=== PATIENT | female | born 1960 | race Caucasian/White ===

== ENCOUNTER 2023-07-07 15:38 | Inpatient (IN) | payer OTHER ==
[2023-07-07 16:43] VITALS: BMI 19.0
[2023-07-07] MEDS ORDERED: DICYCLOMINE HCL 10 MG CAPSULE PO PRN (17:22)
[2023-07-07] MEDS ORDERED: guaiFENesin 600 MG TABLET.ER (FP) PO PRN (17:22)
[2023-07-07] MEDS ORDERED: MAG HYDROX/AL HYDROX/SIMETH 30 ML UNIT-DOSE CUP PO PRN (17:22)
[2023-07-07] MEDS ORDERED: NALOXONE HCL 0.4 MG/ML VIAL IM PRN (17:22)
[2023-07-07] MEDS ORDERED: BENZOCAINE/MENTHOL (CHLORASEPTIC ) LOZENGE MM PRN (17:22)
[2023-07-07] MEDS ORDERED: BISMUTH SUBSALICYLATE 524 MG/30 ML PO PRN (17:22)
[2023-07-07] MEDS ORDERED: BENZONATATE 200 MG CAPSULE PO PRN (17:22)
[2023-07-07] MEDS ORDERED: IBUPROFEN 400 MG TABLET (FP) PO PRN (17:22)
[2023-07-07] MEDS ORDERED: NICOTINE POLACRILEX 2 MG GUM BUC PRN (17:22)
[2023-07-07] MEDS ORDERED: POLYETHYLENE GLYCOL (HEALTHYLAX) 3350 17 GM PACKET PO PRN (17:22)
[2023-07-07] MEDS ORDERED: ACETAMINOPHEN 325 MG TABLET (FP) PO PRN (17:22)
[2023-07-07] MEDS ORDERED: IBUPROFEN 600 MG TABLET (FP) PO PRN (17:22)
[2023-07-07] MEDS ORDERED: ONDANSETRON *ODT* 4 MG TABLET SL PRN (17:22)
[2023-07-07] MEDS ORDERED: NALOXONE HCL (KLOXXADO) 8 MG SPRAY NS PRN (17:22)
[2023-07-07] MEDS ORDERED: MAGNESIUM HYDROX 2400MG/30ML ORAL SUSPENSION 30 ML CUP PO PRN (17:22)
[2023-07-07] MEDS ORDERED: LOPERAMIDE HCL 2 MG CAPSULE PO PRN (17:22)
[2023-07-07] MEDS: MELATONIN 5 MG TABLETS PO SCH (22:56)
[2023-07-07] MEDS: THIAMINE HCL 100 MG TABLET (FP) PO SCH (22:56)
[2023-07-08] MEDS: hydrOXYzine PAMOATE 25 MG CAPSULE (FP) PO PRN (04:06)
[2023-07-08] MEDS: METHOCARBAMOL 500 MG TABLET PO PRN (04:07)
[2023-07-08] MEDS ORDERED: methaDONE HCL 10 MG TABLET (FOR DETOX USE ONLY) PO ONE (09:04)
[2023-07-08] MEDS: PRENATAL VITAMINS W/ FOLIC ACID TABLET (FP) PO SCH (10:02)
[2023-07-08] MEDS: NICOTINE 14 MG/24 HOURS TOPICAL PATCH TD SCH (10:02)
[2023-07-08] MEDS: cloNIDine HCL 0.1 MG TABLET PO PRN ×2 (11:12→20:36)
[2023-07-08] MEDS: amLODIPine BESYLATE 5 MG TABLET (FP) PO SCH (17:41)
[2023-07-08] MEDS: metFORMIN HCL 500 MG TABLET (FP) PO SCH (17:41)
[2023-07-08] MEDS: THIAMINE HCL 100 MG TABLET (FP) PO SCH (23:09)
[2023-07-08] MEDS: MELATONIN 5 MG TABLETS PO SCH (23:09)
[2023-07-09] MEDS: metFORMIN HCL 500 MG TABLET (FP) PO SCH ×2 (07:06→17:17)
[2023-07-09] MEDS: cloNIDine HCL 0.1 MG TABLET PO PRN ×4 (07:06→21:17)
[2023-07-09] MEDS: hydrOXYzine PAMOATE 25 MG CAPSULE (FP) PO PRN (09:55)
[2023-07-09] MEDS: PRENATAL VITAMINS W/ FOLIC ACID TABLET (FP) PO SCH (09:55)
[2023-07-09] MEDS: amLODIPine BESYLATE 5 MG TABLET (FP) PO SCH (09:55)
[2023-07-09] MEDS: METHOCARBAMOL 500 MG TABLET PO PRN (09:55)
[2023-07-09] MEDS: NICOTINE 14 MG/24 HOURS TOPICAL PATCH TD SCH (09:55)
[2023-07-09] MEDS: MELATONIN 5 MG TABLETS PO SCH (21:17)
[2023-07-09] MEDS: THIAMINE HCL 100 MG TABLET (FP) PO SCH (21:17)
[2023-07-10] MEDS: metFORMIN HCL 500 MG TABLET (FP) PO SCH ×2 (06:09→17:03)
[2023-07-10] MEDS: amLODIPine BESYLATE 5 MG TABLET (FP) PO SCH (09:24)
[2023-07-10] MEDS: PRENATAL VITAMINS W/ FOLIC ACID TABLET (FP) PO SCH (09:24)
[2023-07-10] MEDS: NICOTINE 14 MG/24 HOURS TOPICAL PATCH TD SCH (09:25)
[2023-07-10] MEDS ORDERED: methaDONE HCL 10 MG TABLET (FOR DETOX USE ONLY) PO ONE (10:00)
[2023-07-10 12:30] VITALS: RESP 16
[2023-07-10] MEDS: THIAMINE HCL 100 MG TABLET (FP) PO SCH (21:46)
[2023-07-10] MEDS: MELATONIN 5 MG TABLETS PO SCH (21:46)
[2023-07-10] MEDS: cloNIDine HCL 0.1 MG TABLET PO PRN (21:46)
[2023-07-11] MEDS: metFORMIN HCL 500 MG TABLET (FP) PO SCH (07:50)
[2023-07-11] MEDS ORDERED: cloNIDine HCL 0.1 MG TABLET PO PRN (09:29)
[2023-07-11] MEDS: amLODIPine BESYLATE 5 MG TABLET (FP) PO SCH (09:46)
[2023-07-11] MEDS: PRENATAL VITAMINS W/ FOLIC ACID TABLET (FP) PO SCH (09:46)
[2023-07-11] MEDS: NICOTINE 14 MG/24 HOURS TOPICAL PATCH TD SCH (10:22)
[2023-07-11 10:45] LABS: BASO % 0.5 % (0-2.0); EOS % 2.7 % (0-4.5); HEMATOCRIT 41.2 % (32.4-45.2); HEMOGLOBIN 13.4 GM/dL (10.7-15.3); LYMPH % 31.4 % (8-40); MCH 30.1 pg (25.7-33.7); MCHC 32.5 g/dl (32.0-36.0); MEAN CELL VOLUME 92.6 fl (80-96); MONO % 12.5 % (3.8-10.2); NEUT % 52.9 % (42.8-82.8); PLATELET COUNT 265 10^3/uL (134-434); RBC 4.45 M/mm3 (3.60-5.2); RDW 16.1 % (11.6-15.6); WHITE BLOOD COUNT 5.9 K/mm3 (4.0-10.0)
[2023-07-11 11:08] LABS: POTASSIUM 4.5 mmol/L (3.5-5.1)
[2023-07-11 11:09] LABS: CALCIUM 9.3 mg/dL (8.5-10.1)
[2023-07-11 11:11] LABS: ALBUMIN 3.1 g/dl (3.4-5.0); BLOOD UREA NITROGEN 18.2 mg/dL (7-18)
[2023-07-11 11:13] LABS: CREATININE 0.9 mg/dL (0.55-1.3)
[2023-07-11 11:14] LABS: TOT PROT 7.5 g/dl (6.4-8.2)
[2023-07-11 11:15] LABS: BILIRUBIN,TOTAL 0.3 mg/dL (0.2-1)
[2023-07-11 13:05] VITALS: BP 133/79; PULSE 64; TEMP 98.6
[2023-07-12] MEDS ORDERED: methaDONE HCL 10 MG TABLET (FOR DETOX USE ONLY) PO ONE (10:00)
== END 2023-07-11 14:57 | disposition left against medical advice (07) | DRG 770 ==
LOC: YASAS 15:38 → Y3N 17:53
PROVIDERS: ADMIT Allergy & Immunology; ATTEND Allergy & Immunology
PROC: HZ2ZZZZ Detoxification Services for Substance Abuse Treatment (ICD-10-PCS; principal; 2023-07-07)
DX: F11.23 Opioid dependence with withdrawal (principal); F14.20 Cocaine dependence, uncomplicated; F17.210 Nicotine dependence, cigarettes, uncomplicated; E11.59 Type 2 diabetes mellitus with other circulatory complications; Z79.84 Long term (current) use of oral hypoglycemic drugs; I73.9 Peripheral vascular disease, unspecified; Z59.00 Homelessness unspecified
CPT/HCPCS: 36415; 80053; 82962; 85025; 87635; 93005; 93010

== ENCOUNTER 2023-10-06 16:32 | Inpatient (IN) | payer OTHER ==
[2023-10-06 16:53] VITALS: BMI 22.8
[2023-10-06] MEDS ORDERED: PIPERACILLIN/TAZOB 4.5 GM 4.5 GM/100 ML BAG IVPB ONE (17:11)
[2023-10-06] MEDS ORDERED: VANCOMYCIN 1 GRAM (PRE-DOCKED) 1,000 MG/250 ML BAG IVPB ONE (17:11)
[2023-10-06] MEDS: PIPERACILLIN/TAZOB 4.5 GM 4.5 GM in DEXTROSE 5%-WATER 100 ML IVPB ONE (17:30)
[2023-10-06 17:47] LABS: BASO % 0.7 % (0-2.0); EOS % 2.9 % (0-4.5); HEMATOCRIT 34.1 % (32.4-45.2); HEMOGLOBIN 11.2 GM/dL (10.7-15.3); LYMPH % 20.3 % (8-40); MCH 30.3 pg (25.7-33.7); MCHC 32.9 g/dl (32.0-36.0); MEAN CELL VOLUME 92.2 fl (80-96); MEAN PLT VOLUME 8.6 fl (7.5-11.1); MONO % 8.5 % (3.8-10.2); NEUT % 67.6 % (42.8-82.8); PLATELET COUNT 227 10^3/uL (134-434); RDW 16.5 % (11.6-15.6); WHITE BLOOD COUNT 7.9 K/mm3 (4.0-10.0)
[2023-10-06 17:52] LABS: INR 1.01 (0.83-1.09); PROTHROMBIN TIME (PATIENT) 11.4 SEC (9.7-13.0)
[2023-10-06 17:54] LABS: ACTIVATED PTT 29.1 SECONDS (25.2-36.5)
[2023-10-06] MEDS: VANCOMYCIN 1,000 MG in DEXTROSE 5%-WATER - 250 ML IVPB ONE (17:55)
[2023-10-06 18:06] LABS: POTASSIUM 3.9 mmol/L (3.5-5.1)
[2023-10-06 18:09] LABS: CALCIUM 8.9 mg/dL (8.5-10.1)
[2023-10-06 18:10] LABS: ALBUMIN 3.2 g/dl (3.4-5.0); BLOOD UREA NITROGEN 19.5 mg/dL (7-18); MAGNESIUM 2.5 mg/dL (1.8-2.4)
[2023-10-06 18:13] LABS: CREATININE 0.9 mg/dL (0.55-1.3)
[2023-10-06 18:15] LABS: BILIRUBIN,TOTAL 0.2 mg/dL (0.2-1)
[2023-10-06 18:26] LABS: ERYTHROCYTE SEDIMENTATION RATE 44 mm/hr (0-30)
[2023-10-07] MEDS ORDERED: LORazepam 1 MG TABLET PO PRN (00:48)
[2023-10-07] MEDS: PIPERACILLIN/TAZOB 3.375 GM 3.375 GM in DEXTROSE 5%-WATER - 50 ML IVPB SCH ×2 (01:42→17:25)
[2023-10-07] MEDS ORDERED: LORazepam 1 MG TABLET PO SCH (05:17)
[2023-10-07] MEDS: VANCOMYCIN/WATER FOR INJ (PEG) 1,000 MG/200 ML BAG IVPB SCH (05:22)
[2023-10-07] MEDS: LORazepam 1 MG TABLET PO SCH (05:22)
[2023-10-07] MEDS: INSULIN ASPART SLIDING SCALE (NOVOLOG) 1 VIAL SQ SCH (07:32)
[2023-10-07 09:34] LABS: HEMATOCRIT 31.2 % (32.4-45.2); HEMOGLOBIN 10.5 GM/dL (10.7-15.3); MCH 30.6 pg (25.7-33.7); MCHC 33.7 g/dl (32.0-36.0); MEAN CELL VOLUME 90.8 fl (80-96); MEAN PLT VOLUME 8.5 fl (7.5-11.1); PLATELET COUNT 216 10^3/uL (134-434); RBC 3.43 M/mm3 (3.60-5.2); RDW 16.2 % (11.6-15.6); WHITE BLOOD COUNT 6.7 K/mm3 (4.0-10.0)
[2023-10-07 09:55] LABS: POTASSIUM 3.9 mmol/L (3.5-5.1)
[2023-10-07 10:09] LABS: CALCIUM 8.5 mg/dL (8.5-10.1)
[2023-10-07 10:10] LABS: BLOOD UREA NITROGEN 16.9 mg/dL (7-18); MAGNESIUM 2.4 mg/dL (1.8-2.4)
[2023-10-07 10:12] LABS: CREATININE 0.8 mg/dL (0.55-1.3); PHOSPHOROUS 3.9 mg/dL (2.5-4.9)
[2023-10-07 10:14] LABS: BILIRUBIN,TOTAL 0.3 mg/dL (0.2-1); TOT PROT 5.8 g/dl (6.4-8.2)
[2023-10-07 10:20] LABS: ALBUMIN 2.5 g/dl (3.4-5.0)
[2023-10-07] MEDS: NICOTINE 21 MG/24 HOURS TOPICAL PATCH TD SCH (11:00)
[2023-10-07] MEDS: FOLIC ACID 1 MG TABLET (FP) PO SCH (11:01)
[2023-10-07] MEDS: ENOXAPARIN NA (PORCINE) 40 MG/0.4 ML DISP.SYRIN SQ SCH (11:01)
[2023-10-07] MEDS: THIAMINE 100 MG TABLET PO SCH (11:02)
[2023-10-07] MEDS: LORazepam 2 MG TABLET PO SCH (11:47)
[2023-10-07] MEDS: cloNIDine HCL 0.1 MG TABLET PO SCH (14:16)
[2023-10-07] MEDS: VANCOMYCIN 1,000 MG in DEXTROSE 5%-WATER - 250 ML IVPB SCH (17:26)
[2023-10-07 18:01] LABS: URINE APPEARANCE CLEAR; URINE BILIRUBIN NEGATIVE (NEGATIVE); URINE COLOR YELLOW; URINE GLUCOSE (UA) NEGATIVE (NEGATIVE); URINE KETONE NEGATIVE (NEGATIVE); URINE LEUK ESTERASE NEGATIVE (NEGATIVE); URINE NITRITE NEGATIVE (NEGATIVE); URINE PROTEIN NEGATIVE (NEGATIVE); URINE UROBILINOGEN 0.2 mg/dL (0.2-1.0)
[2023-10-07 18:10] LABS: COCAINE, UR POSITIVE (NEGATIVE); METHADONE, UR POSITIVE (NEGATIVE); OPIATES, URI POSITIVE (NEGATIVE); PHENCYCLIDINE,URINE NEGATIVE (NEGATIVE); URINE AMPHETAMINES NEGATIVE (NEGATIVE); URINE BARBITURATES NEGATIVE (NEGATIVE); URINE BENZODIAZEPINES NEGATIVE (NEGATIVE)
[2023-10-08] MEDS: LORazepam 1 MG TABLET PO SCH (05:31)
[2023-10-08] MEDS: VANCOMYCIN/WATER FOR INJ (PEG) 1,000 MG/200 ML BAG IVPB SCH (06:41)
[2023-10-08 09:04] LABS: BASO % 0.4 % (0-2.0); EOS % 1.5 % (0-4.5); HEMOGLOBIN 11.4 GM/dL (10.7-15.3); LYMPH % 15.4 % (8-40); MCH 29.5 pg (25.7-33.7); MCHC 31.8 g/dl (32.0-36.0); MEAN CELL VOLUME 92.9 fl (80-96); MEAN PLT VOLUME 8.8 fl (7.5-11.1); MONO % 7.1 % (3.8-10.2); NEUT % 75.6 % (42.8-82.8); PLATELET COUNT 228 10^3/uL (134-434); RBC 3.88 M/mm3 (3.60-5.2); RDW 15.6 % (11.6-15.6); WHITE BLOOD COUNT 6.5 K/mm3 (4.0-10.0)
[2023-10-08 09:31] LABS: CALCIUM 8.5 mg/dL (8.5-10.1)
[2023-10-08 09:32] LABS: ALBUMIN 2.4 g/dl (3.4-5.0); BLOOD UREA NITROGEN 15.4 mg/dL (7-18)
[2023-10-08 09:35] LABS: CREATININE 0.7 mg/dL (0.55-1.3)
[2023-10-08 09:37] LABS: BILIRUBIN,TOTAL 0.4 mg/dL (0.2-1); TOT PROT 5.8 g/dl (6.4-8.2)
[2023-10-08] MEDS: SODIUM CHLORIDE 1,000 ML IV SCH (10:54)
[2023-10-08] MEDS: methaDONE HCL 40 MG DISPERSABLE TABLET PO ONE (14:32)
[2023-10-09] MEDS: LORazepam 0.5 MG TABLET PO SCH (05:59)
[2023-10-09 08:33] LABS: BASO % 0.5 % (0-2.0); EOS % 2.1 % (0-4.5); HEMATOCRIT 33.6 % (32.4-45.2); HEMOGLOBIN 11.1 GM/dL (10.7-15.3); LYMPH % 21.3 % (8-40); MEAN CELL VOLUME 90.8 fl (80-96); MONO % 7.6 % (3.8-10.2); NEUT % 68.5 % (42.8-82.8); PLATELET COUNT 219 10^3/uL (134-434); RDW 15.7 % (11.6-15.6); WHITE BLOOD COUNT 5.4 K/mm3 (4.0-10.0)
[2023-10-09 08:45] LABS: POTASSIUM 3.8 mmol/L (3.5-5.1)
[2023-10-09 08:47] LABS: ALBUMIN 2.3 g/dl (3.4-5.0); CALCIUM 8.2 mg/dL (8.5-10.1)
[2023-10-09 08:48] LABS: BLOOD UREA NITROGEN 15.2 mg/dL (7-18)
[2023-10-09 08:51] LABS: CREATININE 0.8 mg/dL (0.55-1.3)
[2023-10-09 08:53] LABS: BILIRUBIN,TOTAL 0.2 mg/dL (0.2-1); TOT PROT 5.4 g/dl (6.4-8.2)
[2023-10-09] MEDS: methaDONE HCL 10 MG TABLET PO SCH (09:48)
[2023-10-09] MEDS: LORazepam 0.5 MG TABLET PO PRN (13:36)
[2023-10-10] MEDS: LORazepam 0.5 MG TABLET PO ONE (05:25)
[2023-10-10 09:20] LABS: BASO % 0.7 % (0-2.0); HEMATOCRIT 35.1 % (32.4-45.2); HEMOGLOBIN 11.2 GM/dL (10.7-15.3); LYMPH % 24.5 % (8-40); MCH 29.2 pg (25.7-33.7); MCHC 31.8 g/dl (32.0-36.0); MEAN CELL VOLUME 91.9 fl (80-96); MEAN PLT VOLUME 8.5 fl (7.5-11.1); MONO % 9.9 % (3.8-10.2); NEUT % 61.9 % (42.8-82.8); PLATELET COUNT 228 10^3/uL (134-434); RBC 3.82 M/mm3 (3.60-5.2)
[2023-10-10 09:43] LABS: POTASSIUM 3.9 mmol/L (3.5-5.1)
[2023-10-10 09:52] LABS: BLOOD UREA NITROGEN 11.3 mg/dL (7-18)
[2023-10-10 09:53] LABS: ALBUMIN 2.4 g/dl (3.4-5.0); CALCIUM 8.5 mg/dL (8.5-10.1)
[2023-10-10 09:58] LABS: CREATININE 0.8 mg/dL (0.55-1.3)
[2023-10-10 09:59] LABS: BILIRUBIN,TOTAL 0.2 mg/dL (0.2-1); TOT PROT 5.8 g/dl (6.4-8.2)
[2023-10-10 14:17] VITALS: BP 157/94; PULSE 63; RESP 20; TEMP 97.7
[2023-10-10] MEDS: COLLAGENASE CLOSTRIDIUM HIST. 30 GRAMS TUBE TP SCH (15:52)
== END 2023-10-10 15:45 | disposition left against medical advice (07) | DRG 383 ==
LOC: JER 16:32 → JERBED 17:02 → OBSVTOIN 10-07 00:31 → J7W 10-07 01:08
PROVIDERS: ADMIT Internal Medicine; ATTEND Nurse Practitioner
DX: L03.115 Cellulitis of right lower limb (principal); L03.116 Cellulitis of left lower limb; F11.10 Opioid abuse, uncomplicated; F10.10 Alcohol abuse, uncomplicated; F14.10 Cocaine abuse, uncomplicated; L08.9 Local infection of the skin and subcutaneous tissue, unspecified; I10 Essential (primary) hypertension; J98.11 Atelectasis; E11.51 Type 2 diabetes mellitus with diabetic peripheral angiopathy without gangrene; L98.498 Non-pressure chronic ulcer of skin of other sites with other specified severity; L03.312 Cellulitis of back [any part except buttock and flank]; Z59.00 Homelessness unspecified; S31.000A Unspecified open wound of lower back and pelvis without penetration into retroperitoneum, initial encounter; X58.XXXA Exposure to other specified factors, initial encounter; Y93.9 Activity, unspecified; Y92.9 Unspecified place or not applicable; Y99.9 Unspecified external cause status; B96.4 Proteus (mirabilis) (morganii) as the cause of diseases classified elsewhere; B96.20 Unspecified Escherichia coli [E. coli] as the cause of diseases classified elsewhere; B96.81 Helicobacter pylori [H. pylori] as the cause of diseases classified elsewhere
CPT/HCPCS: 0241U-QW; 36415; 71045-TC-FY; 73590-TC-LT-FY; 73610-TC-LT-FY; 73610-TC-RT-FY; 73630-TC-LT; 73630-TC-RT-FY; 80053; 80307; 81003; 82962; 83036; 83735; 84100; 84484; 85025; 85027; 85610; 85651; 85730; 86140; 87040; 87070; 87076; 87086; 87186; 87205; 93005; 93010; 93970-TC; 99285-25; G0378

== ENCOUNTER 2023-10-13 19:17 | Inpatient (IN) | payer OTHER ==
[2023-10-13 19:59] VITALS: BMI 19.9
[2023-10-13] MEDS ORDERED: MAGNESIUM HYDROX 2400MG/30ML ORAL SUSPENSION 30 ML CUP PO PRN (21:52)
[2023-10-13] MEDS ORDERED: guaiFENesin 600 MG TABLET.ER (FP) PO PRN (21:52)
[2023-10-13] MEDS ORDERED: LOPERAMIDE HCL 2 MG CAPSULE PO PRN (21:52)
[2023-10-13] MEDS ORDERED: NALOXONE HCL 0.4 MG/ML VIAL IM PRN (21:52)
[2023-10-13] MEDS ORDERED: MAG HYDROX/AL HYDROX/SIMETH 30 ML UNIT-DOSE CUP PO PRN (21:52)
[2023-10-13] MEDS ORDERED: BENZONATATE 200 MG CAPSULE PO PRN (21:52)
[2023-10-13] MEDS ORDERED: POLYETHYLENE GLYCOL (HEALTHYLAX) 3350 17 GM PACKET PO PRN (21:52)
[2023-10-13] MEDS ORDERED: IBUPROFEN 400 MG TABLET (FP) PO PRN (21:52)
[2023-10-13] MEDS ORDERED: NICOTINE POLACRILEX 2 MG GUM BUC PRN (21:52)
[2023-10-13] MEDS ORDERED: NALOXONE HCL (KLOXXADO) 8 MG SPRAY NS PRN (21:52)
[2023-10-13] MEDS ORDERED: BENZOCAINE/MENTHOL (CHLORASEPTIC ) LOZENGE MM PRN (21:52)
[2023-10-13] MEDS: MELATONIN 5 MG TABLETS PO SCH (23:35)
[2023-10-13] MEDS: THIAMINE 100 MG TABLET PO SCH (23:36)
[2023-10-14] MEDS: INSULIN ASPART SLIDING SCALE (NOVOLOG) 1 VIAL SQ SCH (06:43)
[2023-10-14] MEDS ORDERED: methaDONE HCL 10 MG TABLET PO SCH (09:30)
[2023-10-14] MEDS ORDERED: methaDONE HCL 10 MG TABLET PO ONE (10:00)
[2023-10-14] MEDS: NICOTINE 14 MG/24 HOURS TOPICAL PATCH TD SCH (10:13)
[2023-10-14] MEDS: methaDONE HCL 40 MG DISPERSABLE TABLET PO SCH (10:13)
[2023-10-14] MEDS: PRENATAL VITAMINS W/ FOLIC ACID TABLET (FP) PO SCH (10:13)
[2023-10-14] MEDS ORDERED: methaDONE HCL 10 MG TABLET PO PRN (12:00)
[2023-10-14 12:35] LABS: HEMATOCRIT 34.3 % (32.4-45.2); HEMOGLOBIN 11.1 GM/dL (10.7-15.3); MCH 29.8 pg (25.7-33.7); MCHC 32.3 g/dl (32.0-36.0); MEAN CELL VOLUME 92.2 fl (80-96); MEAN PLT VOLUME 8.9 fl (7.5-11.1); PLATELET COUNT 250 10^3/uL (134-434); RBC 3.72 M/mm3 (3.60-5.2); RDW 15.9 % (11.6-15.6); WHITE BLOOD COUNT 7.8 K/mm3 (4.0-10.0)
[2023-10-14 13:56] LABS: ALK PHOS 117 U/L (45-117); ANION GAP 8 mmol/L (4-13); BILIRUBIN,TOTAL 0.3 mg/dL (0.2-1); BLOOD UREA NITROGEN 29.8 mg/dL (7-18); CALCIUM 8.9 mg/dL (8.5-10.1); CHLORIDE 106 mmol/L (98-107); CO2 24 mmol/L (21-32); GLUCOSE,RANDOM 96 mg/dL (74-106); POTASSIUM 4.7 mmol/L (3.5-5.1); SGOT/AST 23 U/L (15-37); SGPT/ALT 15 U/L (13-61); SODIUM 138 mmol/L (136-145); TOT PROT 7.2 g/dl (6.4-8.2)
[2023-10-14] MEDS: BISMUTH SUBSALICYLATE 524 MG/30 ML PO PRN (17:44)
[2023-10-14 22:03] LABS: EPI CELLS 3 /uL (0-25.1); HYALINE CASTS 0 /uL (0-3.1); URINE APPEARANCE CLEAR; URINE BACTERIA 2 /uL (0-1359); URINE BILIRUBIN NEGATIVE (NEGATIVE); URINE COLOR YELLOW; URINE GLUCOSE (UA) NEGATIVE (NEGATIVE); URINE KETONE NEGATIVE (NEGATIVE); URINE LEUK ESTERASE NEGATIVE (NEGATIVE); URINE NITRITE NEGATIVE (NEGATIVE); URINE PROTEIN NEGATIVE (NEGATIVE); URINE RBC 18 /uL (0-23.9); URINE UROBILINOGEN 0.2 mg/dL (0.2-1.0); URINE WBC 6 /uL (0-25.8)
[2023-10-15] MEDS ORDERED: methaDONE 40 MG, methaDONE 10 MG PO ONE (10:00)
[2023-10-16] MEDS: IBUPROFEN 600 MG TABLET (FP) PO PRN (07:07)
[2023-10-16] MEDS ORDERED: methaDONE 40 MG, methaDONE 20 MG PO ONE (10:00)
[2023-10-16] MEDS: ACETAMINOPHEN 325 MG TABLET (FP) PO PRN (23:31)
[2023-10-17] MEDS ORDERED: methaDONE 40 MG, methaDONE 30 MG PO ONE (10:00)
[2023-10-17] MEDS: AMINO ACIDS/PROTEIN HYDROLYS 30 ML LIQUID.PKT PO SCH (13:32)
[2023-10-17] MEDS: amLODIPine BESYLATE 2.5 MG TABLET (FP) PO SCH (18:35)
[2023-10-18] MEDS ORDERED: methaDONE HCL 40 MG DISPERSABLE TABLET PO ONE (10:00)
[2023-10-19] MEDS ORDERED: methaDONE 80 MG, methaDONE 10 MG PO ONE (10:00)
[2023-10-20 07:32] VITALS: RESP 16; TEMP 98.3
[2023-10-20 09:27] VITALS: BP 136/64; PULSE 62
== END 2023-10-20 16:15 | disposition home or self-care (01) | DRG 772 ==
LOC: YASAS 19:17 → Y5N 22:23
PROVIDERS: ADMIT Allergy & Immunology; ATTEND Psychiatry & Neurology Pain Medicine
PROC: HZ42ZZZ Group Counseling for Substance Abuse Treatment, Cognitive-Behavioral (ICD-10-PCS; principal; 2023-10-13)
DX: F11.20 Opioid dependence, uncomplicated (principal); F10.20 Alcohol dependence, uncomplicated; F14.20 Cocaine dependence, uncomplicated; F17.210 Nicotine dependence, cigarettes, uncomplicated; I73.9 Peripheral vascular disease, unspecified; I10 Essential (primary) hypertension; E11.51 Type 2 diabetes mellitus with diabetic peripheral angiopathy without gangrene; L98.428 Non-pressure chronic ulcer of back with other specified severity; L98.421 Non-pressure chronic ulcer of back limited to breakdown of skin; R60.0 Localized edema; Z99.89 Dependence on other enabling machines and devices; Z59.00 Homelessness unspecified
CPT/HCPCS: 36415; 80053; 80305; 80307; 81003; 82962; 85027; 86593; 86780; 87811; 93005; 93010

== ENCOUNTER 2023-11-05 10:42 | Inpatient (IN) | payer OTHER ==
[2023-11-05] MEDS ORDERED: NALOXONE HCL 0.4 MG/ML VIAL IM PRN (15:28)
[2023-11-05] MEDS ORDERED: NICOTINE POLACRILEX 4 MG LOZENGE BC PRN (15:28)
[2023-11-05] MEDS ORDERED: MAGNESIUM HYDROX 2400MG/30ML ORAL SUSPENSION 30 ML CUP PO PRN (15:28)
[2023-11-05] MEDS ORDERED: BENZOCAINE/MENTHOL (CHLORASEPTIC ) LOZENGE MM PRN (15:28)
[2023-11-05] MEDS ORDERED: NALOXONE HCL (KLOXXADO) 8 MG SPRAY NS PRN (15:28)
[2023-11-05] MEDS ORDERED: NICOTINE 21 MG/24 HOURS TOPICAL PATCH TD PRN (15:28)
[2023-11-05] MEDS ORDERED: LOPERAMIDE HCL 2 MG CAPSULE PO PRN (15:28)
[2023-11-05] MEDS ORDERED: MAG HYDROX/AL HYDROX/SIMETH 30 ML UNIT-DOSE CUP PO PRN (15:28)
[2023-11-05] MEDS ORDERED: POLYETHYLENE GLYCOL (HEALTHYLAX) 3350 17 GM PACKET PO PRN (15:28)
[2023-11-05] MEDS ORDERED: guaiFENesin 600 MG TABLET.ER (FP) PO PRN (15:28)
[2023-11-05] MEDS ORDERED: BENZONATATE 200 MG CAPSULE PO PRN (15:28)
[2023-11-05] MEDS: INSULIN ASPART SLIDING SCALE (NOVOLOG) 1 VIAL SQ SCH (17:28)
[2023-11-05] MEDS: amLODIPine BESYLATE 2.5 MG TABLET (FP) PO SCH (19:17)
[2023-11-05] MEDS: LIDOCAINE PATCH REMOVAL MC SCH (21:31)
[2023-11-05] MEDS: THIAMINE 100 MG TABLET PO SCH (21:32)
[2023-11-05] MEDS: MELATONIN 5 MG TABLETS PO SCH (21:32)
[2023-11-06] MEDS: hydrOXYzine PAMOATE 25 MG CAPSULE (FP) PO PRN (07:12)
[2023-11-06] MEDS: AMINO ACIDS/PROTEIN HYDROLYS 30 ML LIQUID.PKT PO SCH (07:12)
[2023-11-06] MEDS: PRENATAL VITAMINS W/ FOLIC ACID TABLET (FP) PO SCH (10:12)
[2023-11-06] MEDS: methaDONE HCL 10 MG TABLET PO ONE (11:28)
[2023-11-06 12:06] LABS: HEMATOCRIT 35.3 % (32.4-45.2); HEMOGLOBIN 11.6 GM/dL (10.7-15.3); MCHC 32.8 g/dl (32.0-36.0); MEAN CELL VOLUME 91.4 fl (80-96); MEAN PLT VOLUME 8.6 fl (7.5-11.1); PLATELET COUNT 270 10^3/uL (134-434); RBC 3.86 M/mm3 (3.60-5.2); RDW 16.3 % (11.6-15.6); WHITE BLOOD COUNT 6.5 K/mm3 (4.0-10.0)
[2023-11-06 12:12] LABS: POTASSIUM 3.9 mmol/L (3.5-5.1)
[2023-11-06 12:25] LABS: ALBUMIN 2.9 g/dl (3.4-5.0); BLOOD UREA NITROGEN 25.8 mg/dL (7-18); CALCIUM 8.6 mg/dL (8.5-10.1)
[2023-11-06 12:30] LABS: BILIRUBIN,TOTAL 0.2 mg/dL (0.2-1); TOT PROT 6.3 g/dl (6.4-8.2)
[2023-11-06 13:08] LABS: SYPHILIS W/ RPR CONF REACTIVE (NONREACTIVE)
[2023-11-07] MEDS: methaDONE HCL 40 MG DISPERSABLE TABLET PO SCH (10:12)
[2023-11-07] MEDS ORDERED: INSULIN (NOVOLOG) ASPART 100 UNITS/ML 10ML VIAL ONE (16:30)
[2023-11-08] MEDS: ACETAMINOPHEN 325 MG TABLET (FP) PO PRN (10:01)
[2023-11-08] MEDS ORDERED: INSULIN (NOVOLOG) ASPART 100 UNITS/ML 10ML VIAL ONE (16:59)
[2023-11-12] MEDS ORDERED: INSULIN (NOVOLOG) ASPART 100 UNITS/ML 10ML VIAL ONE (16:32)
[2023-11-13] MEDS ORDERED: INSULIN (NOVOLOG) ASPART 100 UNITS/ML 10ML VIAL ONE (16:30)
[2023-11-14] MEDS: LIDOCAINE 5% TOPICAL PATCH TP PRN (10:15)
[2023-11-14] MEDS ORDERED: INSULIN (NOVOLOG) ASPART 100 UNITS/ML 10ML VIAL ONE ×2 (17:12→17:19)
[2023-11-15] MEDS ORDERED: INSULIN (NOVOLOG) ASPART 100 UNITS/ML 10ML VIAL ONE (05:37)
[2023-11-15] MEDS: amLODIPine BESYLATE 2.5 MG TABLET (FP) PO ONE (11:58)
[2023-11-15] MEDS: LISINOPRIL 10 MG TABLET PO ONE (19:23)
[2023-11-16] MEDS: BACITRACIN 0.9 GM PACKET TP SCH (11:40)
[2023-11-17] MEDS ORDERED: INSULIN (NOVOLOG) ASPART 100 UNITS/ML 10ML VIAL ONE ×2 (16:23→16:54)
[2023-11-18] MEDS ORDERED: TUBERCULIN PPD 5 TU/0.1ML VIAL ID ONE (11:43)
[2023-11-18] MEDS ORDERED: AMMONIUM LACTATE 12% LOTION 225 GM BOTTLE TP PRN (12:43)
[2023-11-20] MEDS ORDERED: INSULIN (NOVOLOG) ASPART 100 UNITS/ML 10ML VIAL ONE (16:04)
[2023-11-25] MEDS ORDERED: INSULIN (NOVOLOG) ASPART 100 UNITS/ML 10ML VIAL ONE (16:31)
[2023-11-28] MEDS ORDERED: INSULIN (NOVOLOG) ASPART 100 UNITS/ML 10ML VIAL ONE (15:42)
[2023-11-29] MEDS: amLODIPine BESYLATE 5 MG TABLET (FP) PO ONE (06:21)
[2023-11-29] MEDS ORDERED: PRENATAL VITAMINS W/ FOLIC ACID TABLET (FP) PO SCH (10:00)
[2023-11-29 17:20] VITALS: BP 127/76; PULSE 71; RESP 20; TEMP 97.4; BMI 21.7
== END 2023-11-29 10:27 | disposition home or self-care (01) | DRG 772 ==
LOC: YASAS 10:42 → Y5N 16:26
PROVIDERS: ADMIT Allergy & Immunology; ATTEND Nurse Practitioner Psychiatric/Mental Health
PROC: HZ42ZZZ Group Counseling for Substance Abuse Treatment, Cognitive-Behavioral (ICD-10-PCS; principal; 2023-11-05)
DX: F11.20 Opioid dependence, uncomplicated (principal); F10.20 Alcohol dependence, uncomplicated; F14.20 Cocaine dependence, uncomplicated; F17.210 Nicotine dependence, cigarettes, uncomplicated; F19.282 Other psychoactive substance dependence with psychoactive substance-induced sleep disorder; F19.24 Other psychoactive substance dependence with psychoactive substance-induced mood disorder; I10 Essential (primary) hypertension; E11.9 Type 2 diabetes mellitus without complications; I73.9 Peripheral vascular disease, unspecified; S09.90XA Unspecified injury of head, initial encounter; M25.562 Pain in left knee; W06.XXXA Fall from bed, initial encounter; Y92.230 Patient room in hospital as the place of occurrence of the external cause; R26.2 Difficulty in walking, not elsewhere classified; R29.6 Repeated falls; Z99.89 Dependence on other enabling machines and devices; Z59.01 Sheltered homelessness
CPT/HCPCS: 36415; 73564-TC-LT-FY; 80053; 80305; 80307; 82140; 82962; 85027; 86593; 86780; 86803; 87811; 93005; 93010

== ENCOUNTER 2023-11-15 13:12 | Emergency (ER) | payer OTHER ==
[2023-11-15 14:19] VITALS: BP 131/83; PULSE 64; RESP 18; TEMP 98.3; BMI 19.3
== END 2023-11-15 18:00 | disposition home or self-care (01) ==
LOC: JER 13:12
DX: S09.90XA Unspecified injury of head, initial encounter (principal); M25.562 Pain in left knee; F10.20 Alcohol dependence, uncomplicated; F14.20 Cocaine dependence, uncomplicated; F11.90 Opioid use, unspecified, uncomplicated; W06.XXXA Fall from bed, initial encounter; Y90.9 Presence of alcohol in blood, level not specified
CPT/HCPCS: 70450-TC; 72125-TC; 73562-TC-LT-FY; 99284-25

== ENCOUNTER 2024-02-04 10:40 | Inpatient (IN) | payer OTHER ==
[2024-02-04 11:05] VITALS: BMI 23.8
[2024-02-04] MEDS ORDERED: ACETAMINOPHEN 325 MG TABLET (FP) PO PRN (12:14)
[2024-02-04] MEDS ORDERED: DICYCLOMINE HCL 10 MG CAPSULE PO PRN (12:14)
[2024-02-04] MEDS ORDERED: LORazepam 1 MG TABLET PO PRN (12:14)
[2024-02-04] MEDS ORDERED: MAGNESIUM HYDROX 2400MG/30ML ORAL SUSPENSION 30 ML CUP PO PRN (12:14)
[2024-02-04] MEDS ORDERED: MAG HYDROX/AL HYDROX/SIMETH 30 ML UNIT-DOSE CUP PO PRN (12:14)
[2024-02-04] MEDS ORDERED: NALOXONE HCL 0.4 MG/ML VIAL IM PRN (12:14)
[2024-02-04] MEDS ORDERED: NICOTINE POLACRILEX 2 MG GUM BUC PRN (12:14)
[2024-02-04] MEDS ORDERED: IBUPROFEN 400 MG TABLET (FP) PO PRN (12:14)
[2024-02-04] MEDS ORDERED: POLYETHYLENE GLYCOL (HEALTHYLAX) 3350 17 GM PACKET PO PRN (12:14)
[2024-02-04] MEDS ORDERED: NALOXONE (NARCAN) HCL 4 MG/0.1 ML SPRAY NS PRN (12:14)
[2024-02-04] MEDS ORDERED: BENZONATATE 200 MG CAPSULE PO PRN (12:14)
[2024-02-04] MEDS ORDERED: BENZOCAINE/MENTHOL (CHLORASEPTIC ) LOZENGE MM PRN (12:14)
[2024-02-04] MEDS ORDERED: BISMUTH SUBSALICYLATE 524 MG/30 ML PO PRN (12:14)
[2024-02-04] MEDS ORDERED: NICOTINE 21 MG/24 HOURS TOPICAL PATCH TD PRN (12:14)
[2024-02-04] MEDS ORDERED: LOPERAMIDE HCL 2 MG CAPSULE PO PRN (12:14)
[2024-02-04] MEDS ORDERED: METHOCARBAMOL 500 MG TABLET PO PRN (12:14)
[2024-02-04] MEDS ORDERED: guaiFENesin 600 MG TABLET.ER (FP) PO PRN (12:14)
[2024-02-04] MEDS ORDERED: IBUPROFEN 600 MG TABLET (FP) PO PRN (12:14)
[2024-02-04] MEDS: amLODIPine BESYLATE 10 MG TABLET (FP) PO SCH (12:52)
[2024-02-04] MEDS ORDERED: methaDONE HCL 10 MG TABLET (FOR DETOX USE ONLY) ONE (13:08)
[2024-02-04] MEDS ORDERED: amLODIPine BESYLATE 5 MG TABLET (FP) ONE (13:08)
[2024-02-04] MEDS: methaDONE HCL 10 MG TABLET PO ONE (13:15)
[2024-02-04] MEDS: SILVER SULFADIAZINE 1% TOP CREAM 50 GM JAR TP SCH (14:04)
[2024-02-04] MEDS: INSULIN ASPART SLIDING SCALE (NOVOLOG) 1 VIAL SQ SCH (16:50)
[2024-02-04] MEDS: LORazepam 2 MG TABLET PO SCH (17:49)
[2024-02-04] MEDS: MELATONIN 5 MG TABLETS PO SCH (22:14)
[2024-02-04] MEDS: THIAMINE 100 MG TABLET PO SCH (22:14)
[2024-02-05] MEDS: PRENATAL VITAMINS W/ FOLIC ACID TABLET (FP) PO SCH (09:53)
[2024-02-05] MEDS ORDERED: methaDONE HCL 40 MG DISPERSABLE TABLET PO SCH (10:00)
[2024-02-05] MEDS: cloNIDine HCL 0.1 MG TABLET PO PRN (12:02)
[2024-02-05] MEDS ORDERED: LORazepam 0.5 MG TABLET PO PRN (13:50)
[2024-02-05] MEDS: LORazepam 1 MG TABLET PO SCH (17:45)
[2024-02-06] MEDS ORDERED: LORazepam 1 MG TABLET PO SCH (05:00)
[2024-02-06] MEDS: LORazepam 0.5 MG TABLET PO SCH (05:59)
[2024-02-07] MEDS ORDERED: LORazepam 0.5 MG TABLET PO PRN
[2024-02-07] MEDS: LORazepam 0.5 MG TABLET PO SCH (05:47)
[2024-02-07 16:46] VITALS: RESP 16
[2024-02-08] MEDS: LORazepam 0.5 MG TABLET PO ONE (05:04)
[2024-02-08 09:00] VITALS: BP 116/66; PULSE 69; TEMP 97.7
== END 2024-02-08 12:15 | disposition other institution (70) | DRG 773 ==
LOC: YASAS 10:40 → Y6N 12:31
PROVIDERS: ADMIT Neuromusculoskeletal Medicine & OMM; ATTEND Neuromusculoskeletal Medicine & OMM
PROC: HZ2ZZZZ Detoxification Services for Substance Abuse Treatment (ICD-10-PCS; principal; 2024-02-04)
DX: F10.230 Alcohol dependence with withdrawal, uncomplicated (principal); F11.20 Opioid dependence, uncomplicated; F14.10 Cocaine abuse, uncomplicated; F17.210 Nicotine dependence, cigarettes, uncomplicated; E11.9 Type 2 diabetes mellitus without complications; I10 Essential (primary) hypertension; Z96.651 Presence of right artificial knee joint; Z59.00 Homelessness unspecified
CPT/HCPCS: 80305; 82962; 87811; 93005; 93010

== ENCOUNTER 2024-02-08 13:12 | Inpatient (IN) | payer OTHER ==
[2024-02-08] MEDS ORDERED: LOPERAMIDE HCL 2 MG CAPSULE PO PRN (14:52)
[2024-02-08] MEDS ORDERED: MAGNESIUM HYDROX 2400MG/30ML ORAL SUSPENSION 30 ML CUP PO PRN (14:52)
[2024-02-08] MEDS ORDERED: BENZONATATE 200 MG CAPSULE PO PRN (14:52)
[2024-02-08] MEDS ORDERED: IBUPROFEN 600 MG TABLET (FP) PO PRN (14:52)
[2024-02-08] MEDS ORDERED: NICOTINE POLACRILEX 4 MG GUM BUC PRN (14:52)
[2024-02-08] MEDS ORDERED: NALOXONE (NARCAN) HCL 4 MG/0.1 ML SPRAY NS PRN (14:52)
[2024-02-08] MEDS ORDERED: MAG HYDROX/AL HYDROX/SIMETH 30 ML UNIT-DOSE CUP PO PRN (14:52)
[2024-02-08] MEDS ORDERED: IBUPROFEN 400 MG TABLET (FP) PO PRN (14:52)
[2024-02-08] MEDS ORDERED: NALOXONE HCL 0.4 MG/ML VIAL IVPUSH PRN (14:52)
[2024-02-08] MEDS ORDERED: ACETAMINOPHEN 325 MG TABLET (FP) PO PRN (14:52)
[2024-02-08] MEDS ORDERED: guaiFENesin 600 MG TABLET.ER (FP) PO PRN (14:52)
[2024-02-08] MEDS ORDERED: METHOCARBAMOL 500 MG TABLET PO PRN (14:52)
[2024-02-08] MEDS ORDERED: NICOTINE POLACRILEX 4 MG LOZENGE BC PRN (14:52)
[2024-02-08] MEDS ORDERED: POLYETHYLENE GLYCOL (HEALTHYLAX) 3350 17 GM PACKET PO PRN (14:52)
[2024-02-08] MEDS ORDERED: BENZOCAINE/MENTHOL (CHLORASEPTIC ) LOZENGE MM PRN (14:52)
[2024-02-08] MEDS: MELATONIN 5 MG TABLETS PO SCH (22:03)
[2024-02-08] MEDS: THIAMINE 100 MG TABLET PO SCH (22:04)
[2024-02-09] MEDS ORDERED: methaDONE HCL 40 MG DISPERSABLE TABLET PO SCH (10:00)
[2024-02-09] MEDS: NICOTINE 21 MG/24 HOURS TOPICAL PATCH TD SCH (10:27)
[2024-02-09] MEDS: PRENATAL VITAMINS W/ FOLIC ACID TABLET (FP) PO SCH (10:28)
[2024-02-09] MEDS: amLODIPine BESYLATE 10 MG TABLET (FP) PO SCH (10:28)
[2024-02-09 15:46] LABS: HIV INTERPRETATION NEGATIVE (NEGATIVE)
[2024-02-10] MEDS: hydrOXYzine PAMOATE 25 MG CAPSULE (FP) PO PRN (01:54)
[2024-02-13] MEDS: BACITRACIN 0.9 GM PACKET TP SCH (21:54)
[2024-02-29 07:29] VITALS: RESP 16
[2024-02-29 10:28] VITALS: BP 149/82; PULSE 74; TEMP 98.4
== END 2024-02-29 09:52 | disposition home or self-care (01) | DRG 772 ==
LOC: YASAS 13:12 → Y5N 13:13
PROVIDERS: ADMIT Psychiatry & Neurology Pain Medicine; ATTEND Psychiatry & Neurology Pain Medicine
PROC: HZ42ZZZ Group Counseling for Substance Abuse Treatment, Cognitive-Behavioral (ICD-10-PCS; principal; 2024-02-08)
DX: F10.20 Alcohol dependence, uncomplicated (principal); F11.20 Opioid dependence, uncomplicated; F17.210 Nicotine dependence, cigarettes, uncomplicated; F14.20 Cocaine dependence, uncomplicated; F19.282 Other psychoactive substance dependence with psychoactive substance-induced sleep disorder; I10 Essential (primary) hypertension; E11.9 Type 2 diabetes mellitus without complications; M17.9 Osteoarthritis of knee, unspecified; L98.429 Non-pressure chronic ulcer of back with unspecified severity; Z86.19 Personal history of other infectious and parasitic diseases; Z59.02 Unsheltered homelessness
CPT/HCPCS: 36415; 82962; 83036; 87389

== ENCOUNTER 2024-05-04 14:56 | Inpatient (IN) | payer OTHER ==
[2024-05-04 15:39] VITALS: BMI 21.9
[2024-05-04] MEDS ORDERED: NALOXONE (NARCAN) HCL 4 MG/0.1 ML SPRAY NS PRN (15:59)
[2024-05-04] MEDS ORDERED: DICYCLOMINE HCL 10 MG CAPSULE PO PRN (15:59)
[2024-05-04] MEDS ORDERED: POLYETHYLENE GLYCOL (HEALTHYLAX) 3350 17 GM PACKET PO PRN (15:59)
[2024-05-04] MEDS ORDERED: BISMUTH SUBSALICYLATE 524 MG/30 ML PO PRN (15:59)
[2024-05-04] MEDS ORDERED: guaiFENesin 600 MG TABLET.ER (FP) PO PRN (15:59)
[2024-05-04] MEDS ORDERED: BENZOCAINE/MENTHOL (CHLORASEPTIC ) LOZENGE MM PRN (15:59)
[2024-05-04] MEDS ORDERED: BENZONATATE 200 MG CAPSULE PO PRN (15:59)
[2024-05-04] MEDS ORDERED: LORazepam 1 MG TABLET PO PRN (15:59)
[2024-05-04] MEDS ORDERED: ACETAMINOPHEN 325 MG TABLET (FP) PO PRN (15:59)
[2024-05-04] MEDS ORDERED: IBUPROFEN 400 MG TABLET (FP) PO PRN (15:59)
[2024-05-04] MEDS ORDERED: MAG HYDROX/AL HYDROX/SIMETH 30 ML UNIT-DOSE CUP PO PRN (15:59)
[2024-05-04] MEDS ORDERED: METHOCARBAMOL 500 MG TABLET PO PRN (15:59)
[2024-05-04] MEDS ORDERED: ONDANSETRON *ODT* 4 MG TABLET SL PRN (15:59)
[2024-05-04] MEDS ORDERED: MAGNESIUM HYDROX 2400MG/30ML ORAL SUSPENSION 30 ML CUP PO PRN (15:59)
[2024-05-04] MEDS ORDERED: hydrOXYzine PAMOATE 25 MG CAPSULE (FP) PO PRN (15:59)
[2024-05-04] MEDS ORDERED: LOPERAMIDE HCL 2 MG CAPSULE PO PRN (15:59)
[2024-05-04] MEDS ORDERED: metFORMIN HCL 500 MG TABLET (FP) PO ONE (16:08)
[2024-05-04] MEDS ORDERED: PRENATAL VITAMINS W/ FOLIC ACID TABLET (FP) PO ONE (16:24)
[2024-05-04] MEDS ORDERED: NICOTINE 7 MG/24 HOURS TOPICAL PATCH TD ONE (16:24)
[2024-05-04] MEDS ORDERED: amLODIPine BESYLATE 5 MG TABLET (FP) ONE (16:24)
[2024-05-04] MEDS: PRENATAL VITAMINS W/ FOLIC ACID TABLET (FP) PO SCH (16:29)
[2024-05-04] MEDS: amLODIPine BESYLATE 10 MG TABLET (FP) PO SCH (16:29)
[2024-05-04] MEDS: NICOTINE 7 MG/24 HOURS TOPICAL PATCH TD SCH (16:29)
[2024-05-04] MEDS: INSULIN ASPART SLIDING SCALE (NOVOLOG) 1 VIAL SQ SCH (18:07)
[2024-05-04] MEDS: metFORMIN HCL 500 MG TABLET (FP) PO ONE (18:15)
[2024-05-04] MEDS: THIAMINE 100 MG TABLET PO SCH (22:41)
[2024-05-04] MEDS: MELATONIN 5 MG TABLETS PO SCH (22:41)
[2024-05-04] MEDS: BACITRACIN/POLYMYXIN B SULFATE 15 GM TUBE TP SCH (23:41)
[2024-05-04] MEDS: LORazepam 2 MG TABLET PO SCH (23:42)
[2024-05-05] MEDS: methaDONE HCL 40 MG DISPERSABLE TABLET PO SCH (11:36)
[2024-05-05] MEDS: amLODIPine BESYLATE 10 MG TABLET (FP) PO ONE (13:23)
[2024-05-06] MEDS: LORazepam 1 MG TABLET PO SCH (05:55)
[2024-05-06] MEDS: PNEUMOC 20-VAL CONJ-DIP CRM/PF 0.5 ML SYRINGE IM ONE (10:40)
[2024-05-06 13:06] LABS: POTASSIUM 4.2 mmol/L (3.5-5.1)
[2024-05-06 13:13] LABS: BASO % 0.6 % (0-2.0); EOS % 4.1 % (0-4.5); HEMATOCRIT 30.5 % (32.4-45.2); HEMOGLOBIN 9.9 GM/dL (10.7-15.3); LYMPH % 21.1 % (8-40); MCH 30.4 pg (25.7-33.7); MCHC 32.6 g/dl (32.0-36.0); MEAN CELL VOLUME 93.1 fl (80-96); MEAN PLT VOLUME 9.5 fl (7.5-11.1); MONO % 7.7 % (3.8-10.2); NEUT % 66.5 % (42.8-82.8); PLATELET COUNT 235 10^3/uL (134-434); RBC 3.27 M/mm3 (3.60-5.2); RDW 16.3 % (11.6-15.6); WHITE BLOOD COUNT 6.8 K/mm3 (4.0-10.0)
[2024-05-06 13:15] LABS: ALBUMIN 2.9 g/dl (3.4-5.0); BLOOD UREA NITROGEN 26.1 mg/dL (7-18); CALCIUM 8.9 mg/dL (8.5-10.1)
[2024-05-06 13:18] LABS: CREATININE 1.3 mg/dL (0.55-1.3)
[2024-05-06 13:20] LABS: TOT PROT 6.3 g/dl (6.4-8.2)
[2024-05-06 13:58] LABS: HIV INTERPRETATION NEGATIVE (NEGATIVE)
[2024-05-07] MEDS: LORazepam 0.5 MG TABLET PO SCH (05:51)
[2024-05-07] MEDS: NALOXONE (NYS OPIOID OVERDOSE PROGRAM) 4 MG/0.1 ML SPRAY NS SCH (15:30)
[2024-05-07] MEDS: METOPROLOL TARTRATE 25 MG TABLET (FP) PO SCH (15:30)
[2024-05-07 21:27] VITALS: RESP 16
[2024-05-07] MEDS: LORazepam 0.5 MG TABLET PO PRN (23:18)
[2024-05-07] MEDS: IBUPROFEN 600 MG TABLET (FP) PO PRN (23:18)
[2024-05-08] MEDS: LORazepam 0.5 MG TABLET PO ONE (05:18)
[2024-05-08 09:05] VITALS: BP 111/70; PULSE 56; TEMP 97.6
== END 2024-05-08 10:58 | disposition home or self-care (01) | DRG 773 ==
LOC: YASAS 14:56 → Y6N 16:46
PROVIDERS: ADMIT Allergy & Immunology; ATTEND Surgery
PROC: HZ2ZZZZ Detoxification Services for Substance Abuse Treatment (ICD-10-PCS; principal; 2024-05-04)
DX: F10.230 Alcohol dependence with withdrawal, uncomplicated (principal); F11.20 Opioid dependence, uncomplicated; F14.10 Cocaine abuse, uncomplicated; F17.210 Nicotine dependence, cigarettes, uncomplicated; F19.282 Other psychoactive substance dependence with psychoactive substance-induced sleep disorder; D64.9 Anemia, unspecified; I10 Essential (primary) hypertension; I73.9 Peripheral vascular disease, unspecified; E11.9 Type 2 diabetes mellitus without complications; Z79.84 Long term (current) use of oral hypoglycemic drugs; M17.0 Bilateral primary osteoarthritis of knee; R94.31 Abnormal electrocardiogram [ECG] [EKG]; Z99.89 Dependence on other enabling machines and devices; Z59.00 Homelessness unspecified
CPT/HCPCS: 36415; 80053; 80305; 80307; 82962; 85025; 86593; 86780; 86803; 87389; 90677; 93005; 93010; G0009

== ENCOUNTER 2024-05-21 11:41 | Inpatient (IN) | payer OTHER ==
[2024-05-21 12:32] VITALS: BMI 21.7
[2024-05-21] MEDS ORDERED: BENZONATATE 200 MG CAPSULE PO PRN (12:50)
[2024-05-21] MEDS ORDERED: guaiFENesin 600 MG TABLET.ER (FP) PO PRN (12:50)
[2024-05-21] MEDS ORDERED: ACETAMINOPHEN 325 MG TABLET (FP) PO PRN (12:50)
[2024-05-21] MEDS ORDERED: POLYETHYLENE GLYCOL (HEALTHYLAX) 3350 17 GM PACKET PO PRN (12:50)
[2024-05-21] MEDS ORDERED: MAGNESIUM HYDROX 2400MG/30ML ORAL SUSPENSION 30 ML CUP PO PRN (12:50)
[2024-05-21] MEDS ORDERED: IBUPROFEN 400 MG TABLET (FP) PO PRN (12:50)
[2024-05-21] MEDS ORDERED: LOPERAMIDE HCL 2 MG CAPSULE PO PRN (12:50)
[2024-05-21] MEDS ORDERED: BENZOCAINE/MENTHOL (CHLORASEPTIC ) LOZENGE MM PRN (12:50)
[2024-05-21] MEDS ORDERED: NALOXONE (NARCAN) HCL 4 MG/0.1 ML SPRAY NS PRN (12:50)
[2024-05-21] MEDS ORDERED: NICOTINE POLACRILEX 2 MG GUM BUC PRN (12:50)
[2024-05-21] MEDS ORDERED: MAG HYDROX/AL HYDROX/SIMETH 30 ML UNIT-DOSE CUP PO PRN (12:50)
[2024-05-21] MEDS ORDERED: IBUPROFEN 600 MG TABLET (FP) PO PRN (12:50)
[2024-05-21] MEDS: amLODIPine BESYLATE 10 MG TABLET (FP) PO SCH (23:08)
[2024-05-21] MEDS: MELATONIN 5 MG TABLETS PO SCH (23:08)
[2024-05-21] MEDS: THIAMINE 100 MG TABLET PO SCH (23:08)
[2024-05-22] MEDS ORDERED: methaDONE HCL 10 MG TABLET PO SCH (08:15)
[2024-05-22] MEDS: PRENATAL VITAMINS W/ FOLIC ACID TABLET (FP) PO SCH (09:14)
[2024-05-22] MEDS: NICOTINE 14 MG/24 HOURS TOPICAL PATCH TD SCH (09:15)
[2024-05-22 11:30] LABS: HEMATOCRIT 30.9 % (32.4-45.2); HEMOGLOBIN 9.8 GM/dL (10.7-15.3); MCH 29.8 pg (25.7-33.7); MCHC 31.8 g/dl (32.0-36.0); MEAN CELL VOLUME 93.9 fl (80-96); MEAN PLT VOLUME 9.6 fl (7.5-11.1); PLATELET COUNT 225 10^3/uL (134-434); RBC 3.29 M/mm3 (3.60-5.2); RDW 15.6 % (11.6-15.6); WHITE BLOOD COUNT 7.6 K/mm3 (4.0-10.0)
[2024-05-22 11:43] LABS: ALBUMIN 2.8 g/dl (3.4-5.0); CALCIUM 8.6 mg/dL (8.5-10.1)
[2024-05-22 11:44] LABS: BLOOD UREA NITROGEN 35.5 mg/dL (7-18)
[2024-05-22 11:46] LABS: CREATININE 1.3 mg/dL (0.55-1.3)
[2024-05-22 11:48] LABS: PH,URINE 5.5 (5.0-8.0); URINE APPEARANCE CLEAR; URINE BILIRUBIN NEGATIVE (NEGATIVE); URINE COLOR YELLOW; URINE GLUCOSE (UA) NEGATIVE (NEGATIVE); URINE KETONE NEGATIVE (NEGATIVE); URINE LEUK ESTERASE NEGATIVE (NEGATIVE); URINE NITRITE NEGATIVE (NEGATIVE); URINE PROTEIN NEGATIVE (NEGATIVE); URINE UROBILINOGEN 0.2 mg/dL (0.2-1.0)
[2024-05-22 11:48] LABS: BILIRUBIN,TOTAL 0.1 mg/dL (0.2-1); TOT PROT 5.9 g/dl (6.4-8.2)
[2024-05-23] MEDS: cloNIDine HCL 0.1 MG TABLET PO ONE (20:07)
[2024-05-24] MEDS: INSULIN ASPART SLIDING SCALE (NOVOLOG) 1 VIAL SQ SCH ×2 (06:53→16:52)
[2024-05-24] MEDS ORDERED: INSULIN (NOVOLOG) ASPART 100 UNITS/ML 10ML VIAL ONE (16:41)
[2024-05-29] MEDS: AMINO ACIDS/PROTEIN HYDROLYS 30 ML LIQUID.PKT PO SCH (07:01)
[2024-05-30] MEDS ORDERED: methaDONE HCL 40 MG DISPERSABLE TABLET PO SCH (06:00)
[2024-05-30] MEDS: BACITRACIN 0.9 GM PACKET TP SCH (11:56)
[2024-05-30] MEDS: PETROLATUM, WHITE 30 GM TUBE TP SCH (11:56)
[2024-05-30] MEDS ORDERED: INSULIN (NOVOLOG) ASPART 100 UNITS/ML 10ML VIAL ONE (16:27)
[2024-05-30] MEDS: BACLOFEN 10 MG TABLET (FP) PO SCH (21:10)
[2024-06-01] MEDS: NALOXONE (NYS OPIOID OVERDOSE PROGRAM) 4 MG/0.1 ML SPRAY NS SCH (00:47)
[2024-06-01 07:18] VITALS: BP 148/78; PULSE 60; RESP 18; TEMP 98.2
== END 2024-06-01 07:32 | disposition home or self-care (01) | DRG 772 ==
LOC: YASAS 11:41 → Y3NR 15:03 → Y5N 05-23 18:05
PROVIDERS: ADMIT Allergy & Immunology; ATTEND Family Medicine Addiction Medicine
PROC: HZ42ZZZ Group Counseling for Substance Abuse Treatment, Cognitive-Behavioral (ICD-10-PCS; principal; 2024-05-21)
DX: F11.20 Opioid dependence, uncomplicated (principal); F10.20 Alcohol dependence, uncomplicated; F14.20 Cocaine dependence, uncomplicated; F17.210 Nicotine dependence, cigarettes, uncomplicated; F19.282 Other psychoactive substance dependence with psychoactive substance-induced sleep disorder; I10 Essential (primary) hypertension; I73.9 Peripheral vascular disease, unspecified; E11.9 Type 2 diabetes mellitus without complications; Z79.4 Long term (current) use of insulin; L98.429 Non-pressure chronic ulcer of back with unspecified severity; M17.11 Unilateral primary osteoarthritis, right knee; Z96.651 Presence of right artificial knee joint; Z99.89 Dependence on other enabling machines and devices; Z59.02 Unsheltered homelessness
CPT/HCPCS: 36415; 80053; 80307; 81003; 82140; 82962; 83036; 85027; 86593; 86780; 93005; 93010; J0475

== ENCOUNTER 2024-06-18 13:24 | Inpatient (IN) | payer OTHER ==
[2024-06-18] MEDS ORDERED: LOPERAMIDE HCL 2 MG CAPSULE PO PRN (13:47)
[2024-06-18] MEDS ORDERED: IBUPROFEN 400 MG TABLET (FP) PO PRN (13:47)
[2024-06-18] MEDS ORDERED: BENZOCAINE/MENTHOL (CHLORASEPTIC ) LOZENGE MM PRN (13:47)
[2024-06-18] MEDS ORDERED: LORazepam 1 MG TABLET PO PRN (13:47)
[2024-06-18] MEDS ORDERED: IBUPROFEN 600 MG TABLET (FP) PO PRN (13:47)
[2024-06-18] MEDS ORDERED: hydrOXYzine PAMOATE 25 MG CAPSULE (FP) PO PRN (13:47)
[2024-06-18] MEDS ORDERED: NICOTINE POLACRILEX 4 MG GUM BUC PRN (13:47)
[2024-06-18] MEDS ORDERED: ACETAMINOPHEN 325 MG TABLET (FP) PO PRN (13:47)
[2024-06-18] MEDS ORDERED: MAG HYDROX/AL HYDROX/SIMETH 30 ML UNIT-DOSE CUP PO PRN (13:47)
[2024-06-18] MEDS ORDERED: DICYCLOMINE HCL 10 MG CAPSULE PO PRN (13:47)
[2024-06-18] MEDS ORDERED: POLYETHYLENE GLYCOL (HEALTHYLAX) 3350 17 GM PACKET PO PRN (13:47)
[2024-06-18] MEDS ORDERED: MAGNESIUM HYDROX 2400MG/30ML ORAL SUSPENSION 30 ML CUP PO PRN (13:47)
[2024-06-18] MEDS ORDERED: NALOXONE (NARCAN) HCL 4 MG/0.1 ML SPRAY NS PRN (13:47)
[2024-06-18] MEDS ORDERED: guaiFENesin 600 MG TABLET.ER (FP) PO PRN (13:47)
[2024-06-18] MEDS ORDERED: ONDANSETRON *ODT* 4 MG TABLET SL PRN (13:47)
[2024-06-18] MEDS ORDERED: BENZONATATE 200 MG CAPSULE PO PRN (13:47)
[2024-06-18] MEDS ORDERED: BISMUTH SUBSALICYLATE 524 MG/30 ML PO PRN (13:47)
[2024-06-18 13:49] VITALS: BMI 22.8
[2024-06-18] MEDS ORDERED: amLODIPine BESYLATE 5 MG TABLET (FP) ONE (15:03)
[2024-06-18] MEDS: amLODIPine BESYLATE 5 MG TABLET (FP) PO ONE (15:06)
[2024-06-18] MEDS: ACAMPROSATE CALCIUM 333 MG TABLET.DR PO SCH (15:34)
[2024-06-18] MEDS: THIAMINE 100 MG TABLET PO SCH (22:33)
[2024-06-18] MEDS: MELATONIN 5 MG TABLETS PO SCH (22:33)
[2024-06-18] MEDS: LORazepam 2 MG TABLET PO SCH (22:34)
[2024-06-18] MEDS: METHOCARBAMOL 500 MG TABLET PO PRN (22:35)
[2024-06-19] MEDS: metFORMIN HCL 500 MG TABLET (FP) PO SCH (06:20)
[2024-06-19] MEDS: amLODIPine BESYLATE 10 MG TABLET (FP) PO SCH (10:38)
[2024-06-19] MEDS: PRENATAL VITAMINS W/ FOLIC ACID TABLET (FP) PO SCH (10:38)
[2024-06-19] MEDS: NICOTINE 14 MG/24 HOURS TOPICAL PATCH TD SCH (10:45)
[2024-06-19 11:11] LABS: POTASSIUM 3.8 mmol/L (3.5-5.1)
[2024-06-19 11:15] LABS: CALCIUM 9.8 mg/dL (8.5-10.1); HEMATOCRIT 37.7 % (32.4-45.2); MCH 30.1 pg (25.7-33.7); MCHC 31.9 g/dl (32.0-36.0); MEAN CELL VOLUME 94.3 fl (80-96); MEAN PLT VOLUME 9.9 fl (7.5-11.1); PLATELET COUNT 258 10^3/uL (134-434); RDW 15.6 % (11.6-15.6); WHITE BLOOD COUNT 6.8 K/mm3 (4.0-10.0)
[2024-06-19 11:16] LABS: ALBUMIN 3.8 g/dl (3.4-5.0); BLOOD UREA NITROGEN 18.9 mg/dL (7-18)
[2024-06-19 11:19] LABS: BILIRUBIN,TOTAL 0.2 mg/dL (0.2-1); TOT PROT 7.7 g/dl (6.4-8.2)
[2024-06-19 11:21] LABS: CREATININE 1.3 mg/dL (0.55-1.3)
[2024-06-19] MEDS ORDERED: methaDONE HCL 10 MG TABLET PO ONE (12:00)
[2024-06-20] MEDS: LORazepam 1 MG TABLET PO SCH (05:50)
[2024-06-20] MEDS ORDERED: methaDONE HCL 10 MG TABLET PO SCH (06:00)
[2024-06-20] MEDS: LORazepam 0.5 MG TABLET PO SCH (17:59)
[2024-06-21] MEDS ORDERED: LORazepam 0.5 MG TABLET PO PRN
[2024-06-21] MEDS: LORazepam 0.5 MG TABLET PO SCH (05:45)
[2024-06-21] MEDS: NALOXONE (NYS OPIOID OVERDOSE PROGRAM) 4 MG/0.1 ML SPRAY NS SCH (11:00)
[2024-06-22] MEDS: LORazepam 0.5 MG TABLET PO ONE (05:45)
[2024-06-22 09:38] VITALS: BP 140/88; PULSE 74; RESP 16; TEMP 98.2
== END 2024-06-22 10:24 | disposition home or self-care (01) | DRG 773 ==
LOC: YASAS 13:24 → Y6N 14:21
PROVIDERS: ADMIT Allergy & Immunology; ATTEND Allergy & Immunology
PROC: HZ2ZZZZ Detoxification Services for Substance Abuse Treatment (ICD-10-PCS; principal; 2024-06-18)
DX: F10.230 Alcohol dependence with withdrawal, uncomplicated (principal); F11.20 Opioid dependence, uncomplicated; F14.10 Cocaine abuse, uncomplicated; F12.10 Cannabis abuse, uncomplicated; F17.210 Nicotine dependence, cigarettes, uncomplicated; F19.282 Other psychoactive substance dependence with psychoactive substance-induced sleep disorder; F43.21 Adjustment disorder with depressed mood; E11.9 Type 2 diabetes mellitus without complications; Z86.19 Personal history of other infectious and parasitic diseases; Z99.89 Dependence on other enabling machines and devices; Z59.00 Homelessness unspecified
CPT/HCPCS: 36415; 80053; 80305; 80307; 82962; 83036; 85027; 86593; 86780; 87811; 93005; 93010

== ENCOUNTER 2024-07-25 08:46 | Emergency (ER) | payer OTHER ==
[2024-07-25 09:28] VITALS: PULSE 57; RESP 17; TEMP 98.1; BMI 50.3
[2024-07-25] MEDS: methaDONE HCL 40 MG DISPERSABLE TABLET PO ONE (10:10)
[2024-07-25] MEDS ORDERED: amLODIPine BESYLATE 10 MG TABLET (FP) ONE (10:11)
[2024-07-25] MEDS: amLODIPine BESYLATE 10 MG TABLET (FP) PO ONE (10:11)
[2024-07-25 10:13] LABS: BASO % 0.7 % (0-2.0); EOS % 2.6 % (0-4.5); HEMOGLOBIN 12.4 GM/dL (10.7-15.3); LYMPH % 17.5 % (8-40); MCH 29.8 pg (25.7-33.7); MCHC 32.6 g/dl (32.0-36.0); MEAN CELL VOLUME 91.6 fl (80-96); MEAN PLT VOLUME 8.7 fl (7.5-11.1); MONO % 6.5 % (3.8-10.2); NEUT % 72.7 % (42.8-82.8); PLATELET COUNT 213 10^3/uL (134-434); RBC 4.15 M/mm3 (3.60-5.2); RDW 15.9 % (11.6-15.6)
[2024-07-25 10:41] LABS: POTASSIUM 4.1 mmol/L (3.5-5.1)
[2024-07-25 10:44] LABS: ALBUMIN 3.7 g/dl (3.4-5.0); BLOOD UREA NITROGEN 21.4 mg/dL (7-18); CALCIUM 9.5 mg/dL (8.5-10.1)
[2024-07-25 10:48] LABS: BILIRUBIN,TOTAL 0.2 mg/dL (0.2-1); CREATININE 1.1 mg/dL (0.55-1.3); TOT PROT 7.6 g/dl (6.4-8.2)
[2024-07-25 11:48] VITALS: BP 148/82
== END 2024-07-25 12:55 | disposition home or self-care (01) ==
LOC: JER 08:46
DX: R42 Dizziness and giddiness (principal)
CPT/HCPCS: 36415; 80053; 84484; 85025; 99283-25

== ENCOUNTER 2024-07-26 10:11 | Inpatient (IN) | payer OTHER ==
[2024-07-26 10:32] VITALS: BMI 23.0
[2024-07-26] MEDS ORDERED: BENZOCAINE/MENTHOL (CHLORASEPTIC ) LOZENGE MM PRN (11:04)
[2024-07-26] MEDS ORDERED: BENZONATATE 200 MG CAPSULE PO PRN (11:04)
[2024-07-26] MEDS ORDERED: NICOTINE POLACRILEX 2 MG GUM BUC PRN (11:04)
[2024-07-26] MEDS ORDERED: IBUPROFEN 400 MG TABLET (FP) PO PRN (11:04)
[2024-07-26] MEDS ORDERED: MAGNESIUM HYDROX 2400MG/30ML ORAL SUSPENSION 30 ML CUP PO PRN (11:04)
[2024-07-26] MEDS ORDERED: POLYETHYLENE GLYCOL (HEALTHYLAX) 3350 17 GM PACKET PO PRN (11:04)
[2024-07-26] MEDS ORDERED: NALOXONE (NARCAN) HCL 4 MG/0.1 ML SPRAY NS PRN (11:04)
[2024-07-26] MEDS ORDERED: MAG HYDROX/AL HYDROX/SIMETH 30 ML UNIT-DOSE CUP PO PRN (11:04)
[2024-07-26] MEDS ORDERED: LOPERAMIDE HCL 2 MG CAPSULE PO PRN (11:04)
[2024-07-26] MEDS ORDERED: guaiFENesin 600 MG TABLET.ER (FP) PO PRN (11:04)
[2024-07-26] MEDS ORDERED: IBUPROFEN 600 MG TABLET (FP) PO PRN (11:04)
[2024-07-26] MEDS: ACAMPROSATE CALCIUM 333 MG TABLET.DR PO SCH (14:46)
[2024-07-26] MEDS: metFORMIN HCL 500 MG TABLET (FP) PO SCH (17:11)
[2024-07-26] MEDS: MELATONIN 5 MG TABLETS PO SCH (22:52)
[2024-07-26] MEDS: THIAMINE 100 MG TABLET PO SCH (22:53)
[2024-07-27] MEDS ORDERED: methaDONE HCL 10 MG TABLET PO SCH (06:00)
[2024-07-27] MEDS ORDERED: metFORMIN HCL 500 MG TABLET (FP) PO SCH (07:00)
[2024-07-27 11:21] LABS: HEMATOCRIT 36.3 % (32.4-45.2); HEMOGLOBIN 11.6 GM/dL (10.7-15.3); MCH 29.9 pg (25.7-33.7); MEAN CELL VOLUME 93.3 fl (80-96); MEAN PLT VOLUME 9.5 fl (7.5-11.1); PLATELET COUNT 243 10^3/uL (134-434); RDW 16.2 % (11.6-15.6); WHITE BLOOD COUNT 6.8 K/mm3 (4.0-10.0)
[2024-07-27 11:27] LABS: POTASSIUM 4.4 mmol/L (3.5-5.1)
[2024-07-27 11:34] LABS: ALBUMIN 3.5 g/dl (3.4-5.0); BLOOD UREA NITROGEN 26.9 mg/dL (7-18); CALCIUM 9.2 mg/dL (8.5-10.1)
[2024-07-27 11:36] LABS: BILIRUBIN,TOTAL 0.2 mg/dL (0.2-1); TOT PROT 7.2 g/dl (6.4-8.2)
[2024-07-27 11:37] LABS: CREATININE 1.2 mg/dL (0.55-1.3)
[2024-07-27] MEDS: amLODIPine BESYLATE 10 MG TABLET (FP) PO SCH (14:19)
[2024-07-27] MEDS: PRENATAL VITAMINS W/ FOLIC ACID TABLET (FP) PO SCH (14:20)
[2024-07-27] MEDS: NICOTINE 14 MG/24 HOURS TOPICAL PATCH TD SCH (14:21)
[2024-07-27] MEDS: MELATONIN 5 MG TABLETS PO SCH (21:37)
[2024-07-30 11:13] LABS: PH,URINE 6.5 (5.0-8.0); URINE APPEARANCE CLEAR; URINE BILIRUBIN NEGATIVE (NEGATIVE); URINE COLOR YELLOW; URINE GLUCOSE (UA) NEGATIVE (NEGATIVE); URINE KETONE NEGATIVE (NEGATIVE); URINE LEUK ESTERASE NEGATIVE (NEGATIVE); URINE NITRITE NEGATIVE (NEGATIVE); URINE PROTEIN NEGATIVE (NEGATIVE); URINE UROBILINOGEN 0.2 mg/dL (0.2-1.0)
[2024-08-03] MEDS ORDERED: methaDONE HCL 40 MG DISPERSABLE TABLET PO SCH (06:00)
[2024-08-03] MEDS: HYDROCHLOROTHIAZIDE 12.5 MG CAPSULE (FP) PO SCH (11:54)
[2024-08-06] MEDS: BACITRACIN 0.9 GM PACKET TP SCH (10:13)
[2024-08-07] MEDS: ACETAMINOPHEN 325 MG TABLET (FP) PO PRN (21:50)
[2024-08-11] MEDS ORDERED: methaDONE HCL 10 MG TABLET PO SCH (06:00)
[2024-08-16] MEDS ORDERED: OXYMETAZOLINE 0.05% NASAL SOLUTION 15 ML BOTTLE NS PRN (14:16)
[2024-08-16] MEDS ORDERED: guaiFENesin 600 MG TABLET.ER (FP) PO PRN (14:17)
[2024-08-16] MEDS ORDERED: BENZONATATE 200 MG CAPSULE PO PRN (14:17)
[2024-08-16 22:12] VITALS: RESP 18
[2024-08-17 07:25] VITALS: TEMP 97.1
[2024-08-17 09:34] VITALS: BP 133/77; PULSE 77
== END 2024-08-17 10:23 | disposition home or self-care (01) | DRG 772 ==
LOC: YASAS 10:11 → Y3NR 12:04 → Y5N 07-27 12:56
PROVIDERS: ADMIT Psychiatry & Neurology Pain Medicine; ATTEND Psychiatry & Neurology Pain Medicine
PROC: HZ42ZZZ Group Counseling for Substance Abuse Treatment, Cognitive-Behavioral (ICD-10-PCS; principal; 2024-07-26)
DX: F10.20 Alcohol dependence, uncomplicated (principal); F11.20 Opioid dependence, uncomplicated; F14.20 Cocaine dependence, uncomplicated; F17.210 Nicotine dependence, cigarettes, uncomplicated; I10 Essential (primary) hypertension; I73.9 Peripheral vascular disease, unspecified; L89.159 Pressure ulcer of sacral region, unspecified stage; E11.9 Type 2 diabetes mellitus without complications; Z79.84 Long term (current) use of oral hypoglycemic drugs; R42 Dizziness and giddiness; Z86.19 Personal history of other infectious and parasitic diseases
CPT/HCPCS: 0241U-QW; 36415; 70450-TC; 72125-TC; 73562-TC-LT-FY; 80053; 80305; 80307; 81003; 82962; 84484; 85025; 85027; 86593; 86780; 87811; 93005; 93010; 99283-25; 99284-25

== ENCOUNTER 2024-10-28 08:54 | Inpatient (IN) | payer OTHER ==
[2024-10-28 09:38] VITALS: BMI 27.1
[2024-10-28] MEDS ORDERED: MAGNESIUM HYDROX 2400MG/30ML ORAL SUSPENSION 30 ML CUP PO PRN (10:03)
[2024-10-28] MEDS ORDERED: guaiFENesin 600 MG TABLET.ER (FP) PO PRN (10:03)
[2024-10-28] MEDS ORDERED: IBUPROFEN 600 MG TABLET (FP) PO PRN (10:03)
[2024-10-28] MEDS ORDERED: NICOTINE POLACRILEX 2 MG LOZENGE BC PRN (10:03)
[2024-10-28] MEDS ORDERED: MAG HYDROX/AL HYDROX/SIMETH 30 ML UNIT-DOSE CUP PO PRN (10:03)
[2024-10-28] MEDS ORDERED: NALOXONE (NARCAN) HCL 4 MG/0.1 ML SPRAY NS PRN (10:03)
[2024-10-28] MEDS ORDERED: BENZOCAINE/MENTHOL (CHLORASEPTIC ) LOZENGE MM PRN (10:03)
[2024-10-28] MEDS ORDERED: POLYETHYLENE GLYCOL (HEALTHYLAX) 3350 17 GM PACKET PO PRN (10:03)
[2024-10-28] MEDS ORDERED: NICOTINE POLACRILEX 2 MG GUM BUC PRN (10:03)
[2024-10-28] MEDS ORDERED: BENZONATATE 200 MG CAPSULE PO PRN (10:03)
[2024-10-28] MEDS ORDERED: SENNOSIDES 8.6MG TABLET (FP) PO PRN (14:38)
[2024-10-28] MEDS ORDERED: DOCUSATE SODIUM 100 MG CAPSULE (FP) PO PRN (14:38)
[2024-10-28] MEDS ORDERED: ONDANSETRON 4 MG TABLET PO PRN (14:38)
[2024-10-28] MEDS: metFORMIN HCL 500 MG TABLET (FP) PO SCH (16:55)
[2024-10-28] MEDS: THIAMINE 100 MG TABLET PO SCH (22:41)
[2024-10-28] MEDS: IBUPROFEN 400 MG TABLET (FP) PO PRN (22:41)
[2024-10-28] MEDS: MELATONIN 5 MG TABLETS PO SCH (22:41)
[2024-10-29 09:59] LABS: HEMATOCRIT 29.2 % (34.1-44.9); HEMOGLOBIN 9.2 g/dL (11.2-15.7); MCHC 31.5 g/dl (32.2-35.5); MEAN CELL VOLUME 92.7 fl (79.4-94.8); PLATELET COUNT 506 x10^3/uL (182-369)
[2024-10-29 10:12] LABS: POTASSIUM 4.1 mmol/L (3.5-5.1)
[2024-10-29 10:25] LABS: BLOOD UREA NITROGEN 21.7 mg/dL (7-18); CALCIUM 9.4 mg/dL (8.5-10.1)
[2024-10-29 10:26] LABS: ALBUMIN 2.8 g/dl (3.4-5.0)
[2024-10-29 10:30] LABS: BILIRUBIN,TOTAL 0.2 mg/dL (0.2-1); TOT PROT 6.2 g/dl (6.4-8.2)
[2024-10-29] MEDS: PRENATAL VITAMINS W/ FOLIC ACID TABLET (FP) PO SCH (10:40)
[2024-10-29] MEDS: ASPIRIN COATED 81 MG TABLET.EC PO SCH (10:40)
[2024-10-29] MEDS: MAGNESIUM OXIDE 400 MG TABLET (FP) PO SCH (10:40)
[2024-10-29 10:54] LABS: CREATININE 1.3 mg/dL (0.55-1.3)
[2024-10-29] MEDS: methaDONE HCL 10 MG TABLET PO ONE (11:30)
[2024-10-30] MEDS ORDERED: methaDONE HCL 10 MG TABLET PO ONE ×2 (08:52→16:00)
[2024-10-30] MEDS: methaDONE 80 MG, methaDONE 20 MG PO ONE (09:35)
[2024-10-30] MEDS ORDERED: amLODIPine BESYLATE 5 MG TABLET (FP) PO SCH (13:30)
[2024-10-30 13:48] LABS: HEMATOCRIT 31.8 % (34.1-44.9); HEMOGLOBIN 9.6 g/dL (11.2-15.7); MCHC 30.2 g/dl (32.2-35.5); MEAN PLT VOLUME 10.1 fl (9.4-12.3); PLATELET COUNT 500 x10^3/uL (182-369); RDW 16.1 % (12.4-16.4)
[2024-10-30] MEDS ORDERED: CALAMINE 8% TOPICAL LOTION 177 ML BOTTLE TP PRN (14:03)
[2024-10-30] MEDS: amLODIPine BESYLATE 5 MG TABLET (FP) PO SCH (14:40)
[2024-10-30] MEDS: methaDONE 80 MG, methaDONE 10 MG PO ONE (15:42)
[2024-10-31] MEDS ORDERED: methaDONE HCL 10 MG TABLET PO SCH (06:00)
[2024-10-31] MEDS: ACETAMINOPHEN 325 MG TABLET (FP) PO PRN (10:04)
[2024-10-31 11:32] LABS: PH,URINE 6.5 (5.0-8.0); URINE APPEARANCE CLEAR; URINE BILIRUBIN NEGATIVE (NEGATIVE); URINE COLOR YELLOW; URINE GLUCOSE (UA) NEGATIVE (NEGATIVE); URINE KETONE NEGATIVE (NEGATIVE); URINE LEUK ESTERASE NEGATIVE (NEGATIVE); URINE NITRITE NEGATIVE (NEGATIVE); URINE PROTEIN NEGATIVE (NEGATIVE); URINE UROBILINOGEN 0.2 mg/dL (0.2-1.0)
[2024-11-01] MEDS ORDERED: ONDANSETRON *ODT* 4 MG TABLET SL PRN (13:53)
[2024-11-04] MEDS: FERROUS SO4 325 MG TABLET (FP) PO SCH (09:49)
[2024-11-05] MEDS: LOPERAMIDE HCL 2 MG CAPSULE PO PRN (20:08)
[2024-11-18] MEDS: MELATONIN 5 MG TABLETS PO ONE (21:52)
[2024-11-19] MEDS: MELATONIN 5 MG TABLETS PO SCH (21:01)
[2024-11-22] MEDS: ACAMPROSATE CALCIUM 333 MG TABLET.DR PO SCH (13:10)
[2024-11-22] MEDS: LIDOCAINE 5% TOPICAL PATCH TP SCH (13:10)
[2024-11-22] MEDS: LIDOCAINE PATCH REMOVAL MC SCH (21:37)
[2024-11-26 06:38] VITALS: RESP 17; TEMP 97.8
[2024-11-26 12:16] VITALS: BP 159/68; PULSE 69
== END 2024-11-26 13:20 | disposition home or self-care (01) | DRG 772 ==
LOC: YASAS 08:54 → Y3NR 11:52 → Y5N 10-30 12:41
PROVIDERS: ADMIT Psychiatry & Neurology Pain Medicine; ATTEND Psychiatry & Neurology Pain Medicine
PROC: HZ42ZZZ Group Counseling for Substance Abuse Treatment, Cognitive-Behavioral (ICD-10-PCS; principal; 2024-10-28)
DX: F10.20 Alcohol dependence, uncomplicated (principal); F11.20 Opioid dependence, uncomplicated; F14.20 Cocaine dependence, uncomplicated; F17.210 Nicotine dependence, cigarettes, uncomplicated; F19.282 Other psychoactive substance dependence with psychoactive substance-induced sleep disorder; F19.24 Other psychoactive substance dependence with psychoactive substance-induced mood disorder; D64.9 Anemia, unspecified; I10 Essential (primary) hypertension; I73.9 Peripheral vascular disease, unspecified; E11.9 Type 2 diabetes mellitus without complications; Z79.84 Long term (current) use of oral hypoglycemic drugs; L85.3 Xerosis cutis; Z96.653 Presence of artificial knee joint, bilateral; Z99.89 Dependence on other enabling machines and devices
CPT/HCPCS: 36415; 80053; 80305; 80307; 81003; 82962; 85027; 86593; 86780; 87811

== ENCOUNTER 2025-03-18 11:13 | Inpatient (IN) | payer MEDICARE, OTHER ==
[2025-03-18 13:03] VITALS: BMI 25.9
[2025-03-18] MEDS ORDERED: BENZONATATE 200 MG CAPSULE PO PRN (13:07)
[2025-03-18] MEDS ORDERED: hydrOXYzine PAMOATE 25 MG CAPSULE (FP) PO PRN (13:07)
[2025-03-18] MEDS ORDERED: POLYETHYLENE GLYCOL (HEALTHYLAX) 3350 17 GM PACKET PO PRN (13:07)
[2025-03-18] MEDS ORDERED: guaiFENesin 600 MG TABLET.ER (FP) PO PRN (13:07)
[2025-03-18] MEDS ORDERED: MAG HYDROX/AL HYDROX/SIMETH 30 ML UNIT-DOSE CUP PO PRN (13:07)
[2025-03-18] MEDS ORDERED: NALOXONE (NARCAN) HCL 4 MG/0.1 ML SPRAY NS PRN (13:07)
[2025-03-18] MEDS ORDERED: IBUPROFEN 400 MG TABLET (FP) PO PRN (13:07)
[2025-03-18] MEDS ORDERED: BENZOCAINE/MENTHOL (CHLORASEPTIC ) LOZENGE MM PRN (13:07)
[2025-03-18] MEDS ORDERED: MAGNESIUM HYDROX 2400MG/30ML ORAL SUSPENSION 30 ML CUP PO PRN (13:07)
[2025-03-18] MEDS ORDERED: IBUPROFEN 600 MG TABLET (FP) PO PRN (13:07)
[2025-03-18] MEDS ORDERED: LOPERAMIDE HCL 2 MG CAPSULE PO PRN (13:07)
[2025-03-18] MEDS ORDERED: ACETAMINOPHEN 325 MG TABLET (FP) PO PRN (13:07)
[2025-03-18] MEDS: NICOTINE 7 MG/24 HOURS TOPICAL PATCH TD SCH (14:12)
[2025-03-18] MEDS: PRENATAL VITAMINS W/ FOLIC ACID TABLET (FP) PO SCH (14:12)
[2025-03-18] MEDS: ACETAMINOPHEN 500 MG TABLET (FP) PO SCH (14:12)
[2025-03-18] MEDS: DOCUSATE SODIUM 100 MG CAPSULE (FP) PO SCH (14:50)
[2025-03-18] MEDS: INSULIN ASPART SLIDING SCALE (NOVOLOG) 1 VIAL SQ SCH (16:52)
[2025-03-18] MEDS: metFORMIN HCL 500 MG TABLET (FP) PO SCH (17:15)
[2025-03-18] MEDS ORDERED: metFORMIN HCL 500 MG TABLET (FP) PO SCH (22:00)
[2025-03-18] MEDS: MIRTAZAPINE 15 MG TABLET (FP) PO SCH (22:10)
[2025-03-18] MEDS: MELATONIN 5 MG TABLETS PO SCH (22:11)
[2025-03-18] MEDS: THIAMINE 100 MG TABLET PO SCH (22:11)
[2025-03-19] MEDS: FERROUS SO4 325 MG TABLET (FP) PO SCH (10:01)
[2025-03-19] MEDS: SENNOSIDES 8.6MG TABLET (FP) PO SCH (10:01)
[2025-03-19] MEDS: amLODIPine BESYLATE 5 MG TABLET (FP) PO SCH (10:01)
[2025-03-19] MEDS: ASPIRIN COATED 81 MG TABLET.EC PO SCH (10:01)
[2025-03-19 11:41] LABS: MCHC 29.7 g/dl (32.2-35.5); MEAN CELL VOLUME 88.5 fl (79.4-94.8); MEAN PLT VOLUME 10.5 fl (9.4-12.3); RDW 18.6 % (12.4-16.4)
[2025-03-19 12:04] LABS: GLUCOSE,RANDOM 92.0 mg/dL (74-106)
[2025-03-19] MEDS: FLU VACC TS2025-26(6MOS UP)/PF 45 MCG/0.5 ML SYRINGE IM ONE (12:04)
[2025-03-19 12:05] LABS: TOT PROT 7.1 g/dl (6.4-8.2)
[2025-03-19 12:06] LABS: CO2 27.0 mmol/L (21-32)
[2025-03-19 12:07] LABS: ALK PHOS 137.0 U/L (40-150)
[2025-03-19 12:10] LABS: CREATININE 1.43 mg/dL (0.55-1.3); SGOT/AST 18.0 U/L (5-34); SGPT/ALT 6.0 U/L (0-55)
[2025-03-19 12:18] LABS: HCV DIAGNOSTIC IN-HOUSE W/RFLX NON-REACTIVE (NONREACTIVE)
[2025-03-19 14:03] LABS: SYPHILIS W/ RPR CONF REACTIVE (NONREACTIVE)
[2025-03-19 16:34] LABS: RPR REFLEX REACTIVE 1:1 (NONREACTIVE)
[2025-03-20 04:39] LABS: EPI CELLS 11 /uL (0-25.1); HYALINE CASTS 0 /uL (0-3.1); URINE APPEARANCE CLEAR; URINE BACTERIA >9,000 /uL (0-1359); URINE BILIRUBIN NEGATIVE (NEGATIVE); URINE COLOR YELLOW; URINE GLUCOSE (UA) NEGATIVE (NEGATIVE); URINE KETONE NEGATIVE (NEGATIVE); URINE LEUK ESTERASE TRACE (NEGATIVE); URINE NITRITE NEGATIVE (NEGATIVE); URINE PROTEIN TRACE (NEGATIVE); URINE RBC 8 /uL (0-23.9); URINE UROBILINOGEN 0.2 mg/dL (0.2-1.0); URINE WBC 87 /uL (0-25.8)
[2025-03-20] MEDS: INSULIN ASPART SLIDING SCALE (NOVOLOG) 1 VIAL SQ SCH (16:49)
[2025-03-26] MEDS ORDERED: DOCUSATE SODIUM 100 MG CAPSULE (FP) PO PRN (14:18)
[2025-03-26] MEDS ORDERED: ACETAMINOPHEN 500 MG TABLET (FP) PO PRN (14:19)
[2025-03-26] MEDS ORDERED: SENNOSIDES 8.6MG TABLET (FP) PO PRN (14:19)
[2025-03-27 18:53] LABS: URINE APPEARANCE CLEAR; URINE BILIRUBIN NEGATIVE (NEGATIVE); URINE COLOR YELLOW; URINE GLUCOSE (UA) NEGATIVE (NEGATIVE); URINE KETONE NEGATIVE (NEGATIVE)
[2025-03-27 18:54] LABS: URINE LEUK ESTERASE 1+ (NEGATIVE); URINE NITRITE NEGATIVE (NEGATIVE); URINE PROTEIN TRACE (NEGATIVE); URINE UROBILINOGEN 0.2 mg/dL (0.2-1.0)
[2025-04-02 07:01] VITALS: TEMP 96.8
[2025-04-02 11:54] VITALS: BP 134/61; PULSE 72; RESP 18
== END 2025-04-02 10:15 | disposition home or self-care (01) | DRG 895 ==
LOC: YASAS 11:13 → Y3NR 14:39 → Y5N 03-23 18:13
PROVIDERS: ADMIT Allergy & Immunology; ATTEND Psychiatry & Neurology Pain Medicine
PROC: HZ42ZZZ Group Counseling for Substance Abuse Treatment, Cognitive-Behavioral (ICD-10-PCS; principal; 2025-03-18)
DX: F11.20 Opioid dependence, uncomplicated (principal); F14.20 Cocaine dependence, uncomplicated; F19.282 Other psychoactive substance dependence with psychoactive substance-induced sleep disorder; F10.20 Alcohol dependence, uncomplicated; F17.210 Nicotine dependence, cigarettes, uncomplicated; F19.24 Other psychoactive substance dependence with psychoactive substance-induced mood disorder; I10 Essential (primary) hypertension; I87.8 Other specified disorders of veins; I73.9 Peripheral vascular disease, unspecified; E11.9 Type 2 diabetes mellitus without complications; Z79.84 Long term (current) use of oral hypoglycemic drugs; M17.0 Bilateral primary osteoarthritis of knee
CPT/HCPCS: 36415; 80053; 80305; 80307; 81003; 82962; 85027; 86593; 86780; 86803; 87811; 93005; 93010